=== PATIENT | female | born 1945 | race Caucasian/White ===

== ENCOUNTER 2016-12-17 06:07 | Day surgery (SDC) | payer OTHER ==
[~2016-12-17] VITALS: Ht 170.2 cm; Wt 61.0 kg
[~2016-12-17 06:07] MED LIST: AMPICILLIN PO; ANUSOL HC,ANUCO25 MG PR; CALTRATE PLUS1 EACH PO; CLOTRIM ANTIFUN15 GM TP; GLUCAGEN1 MG IM/SC; HUMALOG100 UNIT/1 SC; HYDROCODON-ACE1 EAC7 PO; HYDROCODON-ACE1 EAC9 PO; INSULIN SC; JANUVIA25 M1 PO; LANTUS 10100 UNITS/ SC; LEVEMIR100 UNIT/2 SC; MIRALAX17 GM PO; NORCO 5/3251 TABLET PO; NOVOLOG PE100 UNITS/ SC; ONDANSETRON ODT4 MG PO; TYLENOL REGULA325 MG PO
[2016-12-17 06:22] VITALS: BP 144/67
[2016-12-17 07:01] LABS: POINT-OF-CARE METER ID UU14174212
[2016-12-17 07:45] LABS: METH RESISTANT S AUREUS PCR NEGATIVE (NEGATIVE); PROBE CHECK PASS; SPECIMEN PROCESSING CONTROL PASS
[2016-12-17 08:50] LABS: POINT-OF-CARE METER ID UU13113675
[2016-12-17 09:24] VITALS: BP 160/74
[2016-12-17 10:06] VITALS: BP 178/76
[2016-12-17 11:07] VITALS: BP 146/77
== END 2016-12-17 11:10 ==
LOC: SDC 06:07
PROVIDERS: Orthopaedic Surgery
DX: T84.89XA Other specified complication of internal orthopedic prosthetic devices, implants and grafts, initial encounter (principal); Y83.1 Surgical operation with implant of artificial internal device as the cause of abnormal reaction of the patient, or of later complication, without mention of misadventure at the time of the procedure; E11.9 Type 2 diabetes mellitus without complications; Z87.891 Personal history of nicotine dependence
CPT/HCPCS: 82948; 87070; 87075; 87205; 87641; J0690; J3010

== ENCOUNTER 2017-03-09 19:10 | Inpatient (IN) | payer OTHER ==
[~2017-03-09] VITALS: Ht 170.2 cm; Wt 86.2 kg
[2017-03-09 19:41] LABS: HEMATOCRIT 29.2 % (36.0-46.0); MCH 29.4 PG (29.0-34.0); MCHC 32.9 G/DL (30.0-36.0); MCV 89.3 FL (83-99); MEAN PLAT.VOLUME 10.8 uM^3 (9.5-12.4); PLATELET COUNT 302 K/uL (156-360); RBC DIS.WIDTH-CV 12.5 % (11.8-14.6); RBC DIS.WIDTH-SD 40.6 % (39-53); RED BLOOD COUNT 3.27 M/uL (3.80-5.20); WHITE BLOOD COUNT 10.3 K/uL (4.1-10.2)
[2017-03-09 19:51] LABS: CHLORIDE 101 mEq/L (99-109); SODIUM 133 mEq/L (136-147)
[2017-03-09 19:53] LABS: GLUCOSE 348 mg/dL (70-99)
[2017-03-09 19:53] LABS: PROTHROMBIN TIME 10.3 (9.2-11.2); PTT 26.4 (25-32)
[2017-03-09 19:54] LABS: ANION GAP 9 MEQ/L (2-14)
[2017-03-09 19:55] LABS: TOTAL BILIRUBIN 0.3 mg/dL (0.0-1.0)
[2017-03-09 19:56] LABS: ALKALINE PHOSPHATASE 116 IU/L (3-129)
[2017-03-09 19:57] LABS: GFR ESTIMATE (CALCULATED) 36 mL/min/
[2017-03-09 19:58] LABS: UREA NITROGEN (BUN) 56 mg/dL (9-23)
[2017-03-09] MEDS ORDERED: LANTUS 10100 UNITS/ SC ×2 (22:05)
[2017-03-09 23:50] LABS: ADD MIUA? YES; BILIRUBIN NEGATIVE; BLOOD SMALL; COLOR YELLOW ((YELLOW)); GLUCOSE (STRIP) 150; KETONES NEGATIVE; LEUKOCYTES LARGE; NITRITE NEGATIVE; PROTEIN (STRIP) 100; SPECIFIC GRAVITY 1.011 (1.000-1.030); UROBILINOGEN 0.2 MG/DL (0.2-1.0)
[2017-03-09 23:52] LABS: UCUL ADDED? YES; WHITE BLOOD CELLS TNTC /HPF (0-5)
[2017-03-10 01:10] VITALS: BP 152/68
[2017-03-10 04:28] VITALS: BP 136/63
[2017-03-10 05:22] LABS: HEMATOCRIT 25.7 % (36.0-46.0); MCV 90.8 FL (83-99)
[2017-03-10 07:00] VITALS: BP 129/60
[2017-03-10 09:46] LABS: ANION GAP 6 MEQ/L (2-14); CHLORIDE 104 MEQ/L (99-109); GFR ESTIMATE (CALCULATED) 47 mL/min/; GLUCOSE 194 mg/dL (70-99); POTASSIUM 4.4 MEQ/L (3.7-5.4); SAMPLE HEMOLYSIS CHECK 0; SAMPLE ICTERIC CHECK 0; SAMPLE LIPEMIA CHECK 0; SODIUM 137 MEQ/L (136-147); UREA NITROGEN (BUN) 50 mg/dL (9-23)
[2017-03-10 10:28] LABS: POINT-OF-CARE METER ID UU14188577
[2017-03-10 11:44] VITALS: BP 112/58
[2017-03-10 12:30] LABS: TROP-I INTERPRETATION NEGATIVE; TROPONIN-I 0.02 ng/mL (0.0-0.30)
[2017-03-10 16:37] LABS: POINT-OF-CARE METER ID UU13113675
[2017-03-10 18:19] LABS: HEMATOCRIT 30.9 % (36.0-46.0); MCH 29.4 PG (29.0-34.0); MCHC 32.4 G/DL (30.0-36.0); MCV 90.9 FL (83-99); PLATELET COUNT 216 K/uL (156-360); RBC DIS.WIDTH-CV 13.8 % (11.8-14.6); RBC DIS.WIDTH-SD 45.8 % (39-53); WHITE BLOOD COUNT 10.4 K/uL (4.1-10.2)
[2017-03-10 19:30] VITALS: BP 149/68
[2017-03-10 23:36] VITALS: BP 133/60
[2017-03-11 03:31] VITALS: BP 148/63
[2017-03-11 05:20] LABS: EOSINOPHIL (%) 4.4 % (0-5); EOSINOPHIL COUNT 0.5 K/uL (0-0.3); HEMATOCRIT 30.2 % (36.0-46.0); IMMATURE GRANULOCYTE (%) 0.3 % (0.0-0.7); INSTRUMENT ABS NEUTROPHIL CT 9.8 K/uL; LYMPHOCYTE COUNT 0.4 K/uL (1.0-2.8); MCH 29.2 PG (29.0-34.0); MCHC 32.1 G/DL (30.0-36.0); MEAN PLAT.VOLUME 11.4 uM^3 (9.5-12.4); MONOCYTE (%) 7.3 % (3-12); MONOCYTE COUNT 0.8 K/uL (0-0.8); NEUTROPHIL (%) 84.3 % (45-76); NEUTROPHIL COUNT 9.8 K/uL (1.8-6.4); PLATELET COUNT 212 K/uL (156-360); RBC DIS.WIDTH-CV 14.4 % (11.8-14.6); RBC DIS.WIDTH-SD 47.7 % (39-53); RED BLOOD COUNT 3.32 M/uL (3.80-5.20); WHITE BLOOD COUNT 11.6 K/uL (4.1-10.2)
[2017-03-11 05:58] LABS: ANION GAP 8 MEQ/L (2-14); CHLORIDE 104 MEQ/L (99-109); GFR ESTIMATE (CALCULATED) 47 mL/min/; MAGNESIUM 2.3 mg/dl (1.3-2.7); POTASSIUM 4.7 MEQ/L (3.7-5.4); SAMPLE HEMOLYSIS CHECK 0; SAMPLE ICTERIC CHECK 0; SAMPLE LIPEMIA CHECK 0; SODIUM 136 MEQ/L (136-147); UREA NITROGEN (BUN) 41 mg/dL (9-23)
[2017-03-11 05:59] LABS: GLUCOSE 349 mg/dL (70-99)
[2017-03-11 07:51] VITALS: BP 133/63
[2017-03-11 10:41] LABS: POINT-OF-CARE METER ID UU14188577
[2017-03-11 14:46] LABS: POINT-OF-CARE METER ID UU14188577
[2017-03-11 16:18] VITALS: BP 144/61
[2017-03-11 19:39] LABS: POINT-OF-CARE METER ID UU14149397
[2017-03-11 20:52] LABS: ADD MIUA? YES; BILIRUBIN NEGATIVE; BLOOD SMALL; COLOR YELLOW ((YELLOW)); GLUCOSE (STRIP) >=500; KETONES NEGATIVE; LEUKOCYTES LARGE; NITRITE NEGATIVE; PROTEIN (STRIP) 30; SPECIFIC GRAVITY 1.016 (1.000-1.030); UROBILINOGEN 0.2 MG/DL (0.2-1.0)
[2017-03-11 21:51] LABS: BACTERIA RARE /HPF; CASTS PRESENT /LPF; CRYSTALS NONE SEEN; EPITHELIAL CELLS RARE /HPF; MUCUS NONE SEEN /LPF; RED BLOOD CELLS 0-5 /HPF (0-5); UCUL ADDED? YES; WHITE BLOOD CELLS TNTC /HPF (0-5)
[2017-03-11 22:13] LABS: POINT-OF-CARE METER ID UU14149397
[2017-03-11 23:29] VITALS: BP 111/53
[2017-03-12 05:29] LABS: EOSINOPHIL (%) 4.4 % (0-5); EOSINOPHIL COUNT 0.5 K/uL (0-0.3); IMMATURE GRANULOCYTE (%) 0.4 % (0.0-0.7); IMMATURE GRANULOCYTE COUNT 0.1 K/uL; INSTRUMENT ABS NEUTROPHIL CT 9.3 K/uL; LYMPHOCYTE COUNT 0.5 K/uL (1.0-2.8); MCH 29.5 PG (29.0-34.0); MCHC 32.7 G/DL (30.0-36.0); MCV 90.4 FL (83-99); MEAN PLAT.VOLUME 11.3 uM^3 (9.5-12.4); MONOCYTE (%) 9.9 % (3-12); MONOCYTE COUNT 1.2 K/uL (0-0.8); NEUTROPHIL (%) 80.4 % (45-76); NEUTROPHIL COUNT 9.3 K/uL (1.8-6.4); PLATELET COUNT 206 K/uL (156-360); RBC DIS.WIDTH-SD 45.3 % (39-53); RED BLOOD COUNT 3.32 M/uL (3.80-5.20); WHITE BLOOD COUNT 11.6 K/uL (4.1-10.2)
[2017-03-12 06:01] LABS: ALKALINE PHOSPHATASE 99 IU/L (3-129); ANION GAP 7 MEQ/L (2-14); CHLORIDE 101 MEQ/L (99-109); GFR ESTIMATE (CALCULATED) 43 mL/min/; POTASSIUM 4.7 MEQ/L (3.7-5.4); SAMPLE HEMOLYSIS CHECK 0; SAMPLE ICTERIC CHECK 0; SAMPLE LIPEMIA CHECK 0; SODIUM 132 MEQ/L (136-147); TOTAL BILIRUBIN 0.3 MG/DL (0.0-1.0); UREA NITROGEN (BUN) 36 mg/dL (9-23)
[2017-03-12 06:02] LABS: GLUCOSE 160 mg/dL (70-99)
[2017-03-12 08:08] VITALS: BP 155/66
[2017-03-12 12:15] LABS: POINT-OF-CARE METER ID UU14188577
[2017-03-12 15:50] VITALS: BP 138/68
[2017-03-12 23:40] VITALS: BP 147/65
[2017-03-13 03:51] VITALS: BP 120/58
[2017-03-13 05:24] LABS: EOSINOPHIL COUNT 0.8 K/uL (0-0.3); HEMATOCRIT 29.8 % (36.0-46.0); IMMATURE GRANULOCYTE (%) 0.5 % (0.0-0.7); IMMATURE GRANULOCYTE COUNT 0.1 K/uL; INSTRUMENT ABS NEUTROPHIL CT 8.7 K/uL; LYMPHOCYTE COUNT 0.6 K/uL (1.0-2.8); MCH 29.4 PG (29.0-34.0); MCHC 32.2 G/DL (30.0-36.0); MCV 91.1 FL (83-99); MEAN PLAT.VOLUME 11.2 uM^3 (9.5-12.4); MONOCYTE (%) 8.6 % (3-12); NEUTROPHIL (%) 78.5 % (45-76); NEUTROPHIL COUNT 8.7 K/uL (1.8-6.4); PLATELET COUNT 209 K/uL (156-360); RBC DIS.WIDTH-CV 13.8 % (11.8-14.6); RBC DIS.WIDTH-SD 46.5 % (39-53); RED BLOOD COUNT 3.27 M/uL (3.80-5.20); WHITE BLOOD COUNT 11.1 K/uL (4.1-10.2)
[2017-03-13 05:49] LABS: ANION GAP 7 MEQ/L (2-14); CHLORIDE 100 MEQ/L (99-109); GFR ESTIMATE (CALCULATED) 39 mL/min/; GLUCOSE 174 mg/dL (70-99); POTASSIUM 4.6 MEQ/L (3.7-5.4); SAMPLE HEMOLYSIS CHECK 0; SAMPLE ICTERIC CHECK 0; SAMPLE LIPEMIA CHECK 0; SODIUM 131 MEQ/L (136-147); TOTAL BILIRUBIN 0.3 MG/DL (0.0-1.0); UREA NITROGEN (BUN) 40 mg/dL (9-23)
[2017-03-13 05:50] LABS: ALKALINE PHOSPHATASE 145 IU/L (3-129)
[2017-03-13 07:51] VITALS: BP 129/60
[2017-03-13 11:45] LABS: POINT-OF-CARE METER ID UU14149397
[2017-03-13 12:31] LABS: POINT-OF-CARE METER ID UU14149397
[2017-03-13 17:58] LABS: POINT-OF-CARE METER ID UU14149397
[2017-03-13 21:42] LABS: POINT-OF-CARE METER ID UU14188577
[2017-03-13 23:16] VITALS: BP 173/77
[2017-03-14 05:23] LABS: EOSINOPHIL COUNT 0.7 K/uL (0-0.3); IMMATURE GRANULOCYTE (%) 0.3 % (0.0-0.7); INSTRUMENT ABS NEUTROPHIL CT 9.5 K/uL; LYMPHOCYTE COUNT 0.6 K/uL (1.0-2.8); MCH 29.5 PG (29.0-34.0); MCHC 32.4 G/DL (30.0-36.0); MCV 90.9 FL (83-99); MEAN PLAT.VOLUME 10.9 uM^3 (9.5-12.4); MONOCYTE (%) 8.6 % (3-12); NEUTROPHIL COUNT 9.5 K/uL (1.8-6.4); PLATELET COUNT 211 K/uL (156-360); RBC DIS.WIDTH-CV 13.2 % (11.8-14.6); RBC DIS.WIDTH-SD 44.1 % (39-53); RED BLOOD COUNT 3.19 M/uL (3.80-5.20); WHITE BLOOD COUNT 11.9 K/uL (4.1-10.2)
[2017-03-14 05:51] LABS: ALKALINE PHOSPHATASE 144 IU/L (3-129); ANION GAP 8 MEQ/L (2-14); CHLORIDE 101 MEQ/L (99-109); GFR ESTIMATE (CALCULATED) 43 mL/min/; GLUCOSE 217 mg/dL (70-99); POTASSIUM 4.7 MEQ/L (3.7-5.4); SAMPLE HEMOLYSIS CHECK 0; SAMPLE ICTERIC CHECK 0; SAMPLE LIPEMIA CHECK 0; SODIUM 132 MEQ/L (136-147); TOTAL BILIRUBIN 0.3 MG/DL (0.0-1.0); UREA NITROGEN (BUN) 39 mg/dL (9-23)
[2017-03-14 06:14] LABS: POINT-OF-CARE METER ID UU14149397
[2017-03-14 08:07] VITALS: BP 137/81
[2017-03-14 10:44] LABS: ADD MIUA? YES; BILIRUBIN NEGATIVE; BLOOD MODERATE; COLOR YELLOW ((YELLOW)); GLUCOSE (STRIP) NEGATIVE; KETONES NEGATIVE; LEUKOCYTES LARGE; NITRITE NEGATIVE; PROTEIN (STRIP) 100; UROBILINOGEN 0.2 MG/DL (0.2-1.0)
[2017-03-14 11:41] LABS: POINT-OF-CARE METER ID UU14188577
[2017-03-14 11:50] LABS: WHITE BLOOD CELLS TNTC /HPF (0-5)
[2017-03-14 12:06] LABS: UCUL ADDED? YES
[2017-03-14 16:03] VITALS: BP 156/71
[2017-03-14 23:24] VITALS: BP 149/67
[2017-03-15 05:13] LABS: EOSINOPHIL (%) 6.9 % (0-5); EOSINOPHIL COUNT 0.8 K/uL (0-0.3); HEMATOCRIT 28.5 % (36.0-46.0); IMMATURE GRANULOCYTE (%) 0.5 % (0.0-0.7); IMMATURE GRANULOCYTE COUNT 0.1 K/uL; INSTRUMENT ABS NEUTROPHIL CT 9.2 K/uL; LYMPHOCYTE COUNT 0.8 K/uL (1.0-2.8); MCH 29.5 PG (29.0-34.0); MCHC 32.6 G/DL (30.0-36.0); MCV 90.5 FL (83-99); MEAN PLAT.VOLUME 11.3 uM^3 (9.5-12.4); MONOCYTE (%) 9.7 % (3-12); MONOCYTE COUNT 1.2 K/uL (0-0.8); NEUTROPHIL (%) 76.3 % (45-76); NEUTROPHIL COUNT 9.2 K/uL (1.8-6.4); PLATELET COUNT 216 K/uL (156-360); RBC DIS.WIDTH-SD 42.8 % (39-53); RED BLOOD COUNT 3.15 M/uL (3.80-5.20); WHITE BLOOD COUNT 12.1 K/uL (4.1-10.2)
[2017-03-15 05:36] LABS: ANION GAP 9 MEQ/L (2-14); CHLORIDE 100 MEQ/L (99-109); GFR ESTIMATE (CALCULATED) 52 mL/min/; GLUCOSE 179 mg/dL (70-99); POTASSIUM 4.9 MEQ/L (3.7-5.4); SAMPLE HEMOLYSIS CHECK 0; SAMPLE ICTERIC CHECK 0; SAMPLE LIPEMIA CHECK 0; SODIUM 131 MEQ/L (136-147); UREA NITROGEN (BUN) 34 mg/dL (9-23)
[2017-03-15 07:29] VITALS: BP 127/60
[2017-03-15 09:49] LABS: INTERNAL CONTROL VALID? YES
[2017-03-15 16:00] VITALS: BP 177/71
[2017-03-15 21:23] LABS: POINT-OF-CARE METER ID UU14188577; POINT-OF-CARE USER ID 608261316
[2017-03-15 23:02] VITALS: BP 119/59
[2017-03-16 05:16] LABS: CHLORIDE 103 mEq/L (99-109); POTASSIUM 4.9 mEq/L (3.7-5.4); SODIUM 132 mEq/L (136-147)
[2017-03-16 05:17] LABS: GLUCOSE 166 mg/dL (70-99)
[2017-03-16 05:18] LABS: HEMATOCRIT 28.1 % (36.0-46.0); MCH 29.4 PG (29.0-34.0); MCHC 32.7 G/DL (30.0-36.0); MCV 89.8 FL (83-99); MEAN PLAT.VOLUME 10.5 uM^3 (9.5-12.4); PLATELET COUNT 267 K/uL (156-360); RBC DIS.WIDTH-CV 12.8 % (11.8-14.6); RBC DIS.WIDTH-SD 41.8 % (39-53); RED BLOOD COUNT 3.13 M/uL (3.80-5.20); WHITE BLOOD COUNT 9.1 K/uL (4.1-10.2)
[2017-03-16 05:19] LABS: ANION GAP 8 MEQ/L (2-14)
[2017-03-16 05:21] LABS: GFR ESTIMATE (CALCULATED) 58 mL/min/
[2017-03-16 05:22] LABS: UREA NITROGEN (BUN) 32 mg/dL (9-23)
[2017-03-16 07:34] VITALS: BP 136/64
[2017-03-16 16:11] VITALS: BP 143/67
[2017-03-16 17:33] LABS: POINT-OF-CARE METER ID UU14149397
[2017-03-17 00:44] VITALS: BP 145/66
[2017-03-17 04:57] LABS: EOSINOPHIL COUNT 1.1 K/uL (0-0.3); HEMATOCRIT 29.5 % (36.0-46.0); IMMATURE GRANULOCYTE (%) 0.5 % (0.0-0.7); IMMATURE GRANULOCYTE COUNT 0.1 K/uL; INSTRUMENT ABS NEUTROPHIL CT 8.2 K/uL; LYMPHOCYTE COUNT 0.7 K/uL (1.0-2.8); MCH 29.5 PG (29.0-34.0); MCHC 32.9 G/DL (30.0-36.0); MCV 89.7 FL (83-99); MEAN PLAT.VOLUME 10.2 uM^3 (9.5-12.4); MONOCYTE (%) 9.1 % (3-12); NEUTROPHIL (%) 73.9 % (45-76); NEUTROPHIL COUNT 8.2 K/uL (1.8-6.4); PLATELET COUNT 310 K/uL (156-360); RBC DIS.WIDTH-CV 12.9 % (11.8-14.6); RBC DIS.WIDTH-SD 42.3 % (39-53); RED BLOOD COUNT 3.29 M/uL (3.80-5.20); WHITE BLOOD COUNT 11.1 K/uL (4.1-10.2)
[2017-03-17 05:08] LABS: CHLORIDE 104 mEq/L (99-109); POTASSIUM 5.5 mEq/L (3.7-5.4); SODIUM 133 mEq/L (136-147)
[2017-03-17 05:10] LABS: GLUCOSE 192 mg/dL (70-99)
[2017-03-17 05:12] LABS: ANION GAP 5 MEQ/L (2-14)
[2017-03-17 05:14] LABS: GFR ESTIMATE (CALCULATED) 58 mL/min/
[2017-03-17 05:15] LABS: UREA NITROGEN (BUN) 28 mg/dL (9-23)
[2017-03-17 08:43] VITALS: BP 126/65
[2017-03-17 11:44] LABS: POINT-OF-CARE METER ID UU14188577
[2017-03-17] MEDS ORDERED: CEFTIN500 MG PO (13:12)
[2017-03-17] MEDS ORDERED: AZITHROMYCIN500 M1 PO (13:13)
[2017-03-17] MEDS ORDERED: TYLENOL REGULA325 MG PO (13:13)
[2017-03-17] MEDS ORDERED: DUONEB 2.5-0.5 M3 ML AEROSOL (13:13)
[2017-03-17] MEDS ORDERED: LOVENOX40 MG/0.4 SC (13:13)
[2017-03-17] MEDS ORDERED: BETHANECHOL CHL25 MG PO (13:13)
[2017-03-17] MEDS ORDERED: BISACODYL5 MG PO (13:15)
[2017-03-17] MEDS ORDERED: DOCUSATE SODIU100 MG PO (13:15)
[2017-03-17] MEDS ORDERED: LEVEMIR100 UNIT/2 SC (13:17)
[2017-03-17] MEDS ORDERED: NOVOLOG PE100 UNITS/ SC (13:17)
[2017-03-17] MEDS ORDERED: THERAGRAN1 TABLET PO (13:18)
[2017-03-17] MEDS ORDERED: LIDOCAINE700 MG TD (13:19)
[2017-03-17] MEDS ORDERED: HYDROCODON-ACE1 EAC9 PO (13:19)
== END 2017-03-17 15:17 | DRG 469 ==
LOC: EME → EDBD 19:10 → EDOF 22:32 → 3EAST 22:32
PROVIDERS: Emergency Medicine; Hospitalist; Internal Medicine; Orthopaedic Surgery; Physician Assistant Medical
PROC: 0SRS0JZ Replacement of Left Hip Joint, Femoral Surface with Synthetic Substitute, Open Approach (ICD-10-PCS; principal; 2017-03-10)
PROC: 30233N1 Transfusion of Nonautologous Red Blood Cells into Peripheral Vein, Percutaneous Approach (ICD-10-PCS; 2017-03-10)
DX: S72.002A Fracture of unspecified part of neck of left femur, initial encounter for closed fracture (principal); N17.9 Acute kidney failure, unspecified; J18.9 Pneumonia, unspecified organism; E11.69 Type 2 diabetes mellitus with other specified complication; E86.0 Dehydration; E11.42 Type 2 diabetes mellitus with diabetic polyneuropathy; E11.65 Type 2 diabetes mellitus with hyperglycemia; Y92.018 Other place in single-family (private) house as the place of occurrence of the external cause; W18.30XA Fall on same level, unspecified, initial encounter; Z87.81 Personal history of (healed) traumatic fracture; R33.9 Retention of urine, unspecified; N39.0 Urinary tract infection, site not specified; E11.319 Type 2 diabetes mellitus with unspecified diabetic retinopathy without macular edema; Z79.4 Long term (current) use of insulin; J45.909 Unspecified asthma, uncomplicated; E87.6 Hypokalemia; D62 Acute posthemorrhagic anemia; Z87.891 Personal history of nicotine dependence; R94.31 Abnormal electrocardiogram [ECG] [EKG]; I44.0 Atrioventricular block, first degree; E87.1 Hypo-osmolality and hyponatremia; N31.2 Flaccid neuropathic bladder, not elsewhere classified; T83.518A Infection and inflammatory reaction due to other urinary catheter, initial encounter; E11.43 Type 2 diabetes mellitus with diabetic autonomic (poly)neuropathy; R01.1 Cardiac murmur, unspecified; M25.562 Pain in left knee; M25.462 Effusion, left knee; M17.12 Unilateral primary osteoarthritis, left knee; M21.372 Foot drop, left foot; K59.00 Constipation, unspecified
CPT/HCPCS: 71010; 73501; 73502; 73560; 80048; 80053; 81003; 82948; 83735; 83880; 84132 91; 84484; 85014; 85018; 85025; 85027; 85610; 85730; 86900; 86901; 86920; 87077; 87086; 87106; 87186; 87449; 93005; 94010; 94640; 94640 76; 94799; 97530 GP; 99202; 99281; 99285; J0131; J0456; J0690; J0696; J1644; J1650; J1815; J1940; J2250; J2270; J3010; J7030; J7042; J7050; P9016

== ENCOUNTER 2017-05-25 14:55 | Inpatient (IN) | payer OTHER ==
[~2017-05-25] VITALS: Ht 167.6 cm; Wt 97.6 kg
[~2017-05-25 14:55] MED LIST changes: +AZITHROMYCIN500 M1 PO; +BETHANECHOL CHL25 MG PO; +BISACODYL5 MG PO; +CEFTIN500 MG PO; +DOCUSATE SODIU100 MG PO; +DUONEB 2.5-0.5 M3 ML AEROSOL; +LIDOCAINE700 MG TD; +LOVENOX40 MG/0.4 SC; +THERAGRAN1 TABLET PO
[2017-05-25 15:37] LABS: CREATININE 1.2 mg/dL (0.6-1.3); POTASSIUM 5.3 mEq/L (3.7-5.4)
[2017-05-25 15:47] LABS: BASOPHIL COUNT 0.1 K/uL (0-0.1); EOSINOPHIL (%) 4.9 % (0-5); EOSINOPHIL COUNT 0.9 K/uL (0-0.3); HEMATOCRIT 35.3 % (36.0-46.0); IMMATURE GRANULOCYTE (%) 3.3 % (0.0-0.7); IMMATURE GRANULOCYTE COUNT 0.6 K/uL; INSTRUMENT ABS NEUTROPHIL CT 11.5 K/uL; LYMPHOCYTE COUNT 3.7 K/uL (1.0-2.8); MCH 30.9 PG (29.0-34.0); MCHC 30.3 G/DL (30.0-36.0); MEAN PLAT.VOLUME 11.8 uM^3 (9.5-12.4); MONOCYTE (%) 5.7 % (3-12); NEUTROPHIL (%) 64.7 % (45-76); NEUTROPHIL COUNT 11.5 K/uL (1.8-6.4); NRBC (%) 0.2 /100 WBC (0-0); PLATELET COUNT 275 K/uL (156-360); RBC DIS.WIDTH-CV 14.6 % (11.8-14.6); RBC DIS.WIDTH-SD 55.2 % (39-53); RED BLOOD COUNT 3.46 M/uL (3.80-5.20); WHITE BLOOD COUNT 17.7 K/uL (4.1-10.2)
[2017-05-25 15:55] LABS: INTER. NORMALIZED RATIO 1.1; PROTHROMBIN TIME 10.9 (9.2-11.2); PTT 24.5 (25-32)
[2017-05-25 15:57] LABS: CHLORIDE 103 mEq/L (99-109); POTASSIUM 5.3 mEq/L (3.7-5.4); SODIUM 135 mEq/L (136-147)
[2017-05-25 15:58] LABS: AMYLASE 39 IU/L (1-118); MAGNESIUM 2.7 mg/dL (1.3-2.7)
[2017-05-25 15:59] LABS: GLUCOSE 366 mg/dL (70-99)
[2017-05-25 16:01] LABS: ANION GAP 16 MEQ/L (2-14)
[2017-05-25 16:03] LABS: GFR ESTIMATE (CALCULATED) 36 mL/min/; SERUM ETHYL ALCOHOL < 10 mg/dL
[2017-05-25 16:04] LABS: UREA NITROGEN (BUN) 45 mg/dL (9-23)
[2017-05-25 16:06] LABS: LIPASE 33 U/L (1.0-51.0)
[2017-05-25 16:06] LABS: BASE EXCESS -10.1 mEq/L (-3 to +3); BICARBONATE 18.2 mEq/L (22-26); COMMENTS - BLOOD GASES C+; DEVICE 980; FI02 100 %; METHEMOGLOBIN 0.9 % (0-1.5); MODE AC; PCO2 51 mm Hg (35-45); PO2 221 mm Hg (80-100); SITE LR
[2017-05-25 16:07] LABS: TROP-I INTERPRETATION NEGATIVE; TROPONIN-I 0.02 ng/mL (0.0-0.30)
[2017-05-25 16:07] LABS: MECHANICAL RATE 14 resp/min; PEEP 12 CM/H20; TIDAL VOLUME 550 ML; TOTAL RESP RATE 14 resp/min
[2017-05-25 16:08] LABS: pH 7.16 (7.35-7.45)
[2017-05-25 17:25] LABS: BASE EXCESS -4.5 mEq/L (-3 to +3); BICARBONATE 21.1 mEq/L (22-26); CARBOXY HGB 1.8 % (0-5); METHEMOGLOBIN 1.1 % (0-1.5)
[2017-05-25 17:26] LABS: COMMENTS - BLOOD GASES C+; DEVICE 980; FI02 100 %; MECHANICAL RATE 16 resp/min; MODE AC; PCO2 40 mm Hg (35-45); PEEP 12 CM/H20; PO2 291 mm Hg (80-100); SITE RR; TOTAL RESP RATE 16 resp/min; pH 7.33 (7.35-7.45)
[2017-05-25 17:27] LABS: ADD MIUA? YES; BILIRUBIN NEGATIVE; BLOOD MODERATE; COLOR YELLOW ((YELLOW)); GLUCOSE (STRIP) 150; KETONES NEGATIVE; LEUKOCYTES LARGE; NITRITE NEGATIVE; PROTEIN (STRIP) 100; SPECIFIC GRAVITY 1.015 (1.000-1.030); UROBILINOGEN 0.2 MG/DL (0.2-1.0)
[2017-05-25 17:28] LABS: AMPHETAMINE NEGATIVE (500 ng/mL); BARBITURATES NEGATIVE (200 ng/mL); BENZODIAZEPINES NEGATIVE (150 ng/mL); COCAINE NEGATIVE (150 ng/mL); INTERNAL CONTROLS VALID? YES; METHADONE NEGATIVE (200 ng/mL); METHAMPHETAMINE NEGATIVE (500 ng/mL); OPIATES (MORPHINE) NEGATIVE (100 ng/mL); OXYCODONE NEGATIVE (100 ng/mL); PHENCYCLIDINE NEGATIVE (25 ng/mL); PROPOXYPHENE NEGATIVE (300 ng/mL); THC CANNABINOIDS NEGATIVE (50 ng/mL); TRICYCLIC ANTIDEPRESSANTS NEGATIVE (300 ng/mL)
[2017-05-25 17:39] LABS: RED BLOOD CELLS 20-30 /HPF (0-5); WHITE BLOOD CELLS TNTC /HPF (0-5)
[2017-05-25 17:40] LABS: BACTERIA 1+ /HPF; CASTS NONE SEEN /LPF; CRYSTALS NONE SEEN; EPITHELIAL CELLS RARE /HPF; MUCUS NONE SEEN /LPF; UCUL ADDED? YES
[2017-05-25] MEDS ORDERED: THEREMS-M1 EACH PO (17:49)
[2017-05-25] MEDS ORDERED: BENADRYL ITCH28.3 GM TP (17:51)
[2017-05-25] MEDS ORDERED: DULCOLAX10 MG PR (17:52)
[2017-05-25] MEDS ORDERED: MILK OF MAGN PO (17:52)
[2017-05-25] MEDS ORDERED: LASIX20 MG PO (17:53)
[2017-05-25] MEDS ORDERED: LEVEMIR FL100 UNIT/1 SC (17:54)
[2017-05-25] MEDS ORDERED: PROAIR HFA8.5 GM IH (17:54)
[2017-05-25] MEDS ORDERED: SANTYL30 GM TP (17:55)
[2017-05-25] MEDS ORDERED: BACTROBAN OINTM22 GM TP (17:56)
[2017-05-25] MEDS ORDERED: KEFLEX500 MG PO (17:57)
[2017-05-25] MEDS ORDERED: CIPROFLOXACIN500 M1 PO (17:58)
[2017-05-25 18:15] VITALS: BP 176/95
[2017-05-25 19:00] VITALS: BP 187/86
[2017-05-25 19:40] LABS: METH RESISTANT S AUREUS PCR POSITIVE (NEGATIVE)
[2017-05-25 19:57] LABS: PROBE CHECK PASS
[2017-05-25 20:00] VITALS: BP 186/90
[2017-05-25 20:31] LABS: DIRECT BILIRUBIN 0.2 mg/dL (0.0-0.3); TOTAL BILIRUBIN 0.5 MG/DL (0.0-1.0)
[2017-05-25 20:37] LABS: ALKALINE PHOSPHATASE 471 IU/L (3-129)
[2017-05-25 21:00] VITALS: BP 193/91
[2017-05-25 22:00] VITALS: BP 183/80
[2017-05-25 22:02] LABS: POINT-OF-CARE METER ID UU13113748
[2017-05-25 23:00] VITALS: BP 182/87
[2017-05-26] VITALS (24 sets, daily range): BP systolic 55–195; BP diastolic 37–96
[2017-05-26 01:02] LABS: POINT-OF-CARE METER ID UU13113748
[2017-05-26 06:19] LABS: ANION GAP 11 MEQ/L (2-14); CHLORIDE 104 MEQ/L (99-109); GFR ESTIMATE (CALCULATED) 43 mL/min/; GLUCOSE 249 mg/dL (70-99); POTASSIUM 5.2 MEQ/L (3.7-5.4); SAMPLE HEMOLYSIS CHECK 0; SAMPLE ICTERIC CHECK 0; SAMPLE LIPEMIA CHECK 0; SODIUM 139 MEQ/L (136-147); UREA NITROGEN (BUN) 44 mg/dL (9-23)
[2017-05-26 06:24] LABS: INTER. NORMALIZED RATIO 1.1; PROTHROMBIN TIME 11.4 (9.2-11.2)
[2017-05-26 06:47] LABS: POINT-OF-CARE METER ID UU14174217
[2017-05-26 11:38] LABS: POINT-OF-CARE METER ID UU14162636
[2017-05-26 15:18] LABS: EOSINOPHIL (%) 0.1 % (0-5); HEMATOCRIT 30.3 % (36.0-46.0); IMMATURE GRANULOCYTE (%) 0.5 % (0.0-0.7); IMMATURE GRANULOCYTE COUNT 0.1 K/uL; INSTRUMENT ABS NEUTROPHIL CT 16.3 K/uL; LYMPHOCYTE COUNT 0.4 K/uL (1.0-2.8); MCH 31.7 PG (29.0-34.0); MEAN PLAT.VOLUME 11.2 uM^3 (9.5-12.4); MONOCYTE (%) 2.9 % (3-12); MONOCYTE COUNT 0.5 K/uL (0-0.8); NEUTROPHIL (%) 93.9 % (45-76); NEUTROPHIL COUNT 16.3 K/uL (1.8-6.4); PLATELET COUNT 217 K/uL (156-360); RBC DIS.WIDTH-CV 14.7 % (11.8-14.6); RBC DIS.WIDTH-SD 50.4 % (39-53); RED BLOOD COUNT 3.25 M/uL (3.80-5.20); WHITE BLOOD COUNT 17.3 K/uL (4.1-10.2)
[2017-05-26 15:19] LABS: MCV 93.2 FL (83-99)
[2017-05-26 16:14] LABS: ALKALINE PHOSPHATASE 354 IU/L (3-129); TOTAL BILIRUBIN 0.4 MG/DL (0.0-1.0)
[2017-05-26 17:02] LABS: BASE EXCESS 0.6 mEq/L (-3 to +3); BICARBONATE 22.6 mEq/L (22-26); CARBOXY HGB 1.5 % (0-5); COMMENTS - BLOOD GASES A+C+; DEVICE VENT; FI02 40 %; MECHANICAL RATE 16 resp/min; METHEMOGLOBIN 1.6 % (0-1.5); MODE A/C; PCO2 27 mm Hg (35-45); PO2 105 mm Hg (80-100); SITE RR; TOTAL RESP RATE 18 resp/min; pH 7.53 (7.35-7.45)
[2017-05-26 17:03] LABS: PEEP 5 CM/H20; TIDAL VOLUME 550 ML
[2017-05-26 17:09] LABS: ADD MIUA? YES; BILIRUBIN NEGATIVE; BLOOD SMALL; COLOR YELLOW ((YELLOW)); GLUCOSE (STRIP) 150; KETONES 20; LEUKOCYTES LARGE; NITRITE NEGATIVE; PROTEIN (STRIP) 30; SPECIFIC GRAVITY 1.021 (1.000-1.030); UROBILINOGEN 0.2 MG/DL (0.2-1.0)
[2017-05-26 18:16] LABS: WHITE BLOOD CELLS TNTC /HPF (0-5)
[2017-05-26 18:17] LABS: BACTERIA 3+ /HPF; EPITHELIAL CELLS RARE /HPF; MUCUS RARE /LPF; OTHER YEAST W/HYPHAE
[2017-05-26 18:38] LABS: BASE EXCESS -0.1 mEq/L (-3 to +3); BICARBONATE 22.3 mEq/L (22-26); CARBOXY HGB 1.4 % (0-5); COMMENTS - BLOOD GASES A+C+; DEVICE VENT; FI02 40 %; MECHANICAL RATE 14 resp/min; METHEMOGLOBIN 1.4 % (0-1.5); MODE AC; PCO2 28 mm Hg (35-45); PO2 99 mm Hg (80-100); SITE RR; TOTAL RESP RATE 18 resp/min; pH 7.51 (7.35-7.45)
[2017-05-26 18:39] LABS: PEEP 5 CM/H20; TIDAL VOLUME 450 ML
== END 2017-05-27 00:17 | DRG 91 ==
LOC: EME 14:55 → 4WEST 17:15 → EDOF 17:15 → 4WEST 17:56
PROVIDERS: Emergency Medicine; Internal Medicine Critical Care Medicine; Internal Medicine Nephrology; Internal Medicine Pulmonary Disease
PROC: 5A1945Z Respiratory Ventilation, 24-96 Consecutive Hours (ICD-10-PCS; principal; 2017-05-25)
PROC: 05HQ33Z Insertion of Infusion Device into Left External Jugular Vein, Percutaneous Approach (ICD-10-PCS; 2017-05-25)
DX: G93.1 Anoxic brain damage, not elsewhere classified (principal); I46.9 Cardiac arrest, cause unspecified; I47.2 Ventricular tachycardia; I48.91 Unspecified atrial fibrillation; I49.01 Ventricular fibrillation; A41.9 Sepsis, unspecified organism; R65.21 Severe sepsis with septic shock; J96.01 Acute respiratory failure with hypoxia; N17.9 Acute kidney failure, unspecified; N39.0 Urinary tract infection, site not specified; E87.2 Acidosis; J90 Pleural effusion, not elsewhere classified; J98.11 Atelectasis; E11.65 Type 2 diabetes mellitus with hyperglycemia; D64.9 Anemia, unspecified; I10 Essential (primary) hypertension; J45.909 Unspecified asthma, uncomplicated; Z79.4 Long term (current) use of insulin; Z87.891 Personal history of nicotine dependence; Z96.649 Presence of unspecified artificial hip joint
CPT/HCPCS: 36600; 70450; 71010; 71275; 80047; 80048; 80076; 81003; 82150; 82803; 82948; 83605; 83690; 83735; 84484; 85025; 85610; 85730; 86900; 86901; 87040; 87070; 87077; 87086; 87186; 87205; 87641; 93005; 94002; 94640; 95819; 99281; 99285; G0480; J0282; J0360; J0461; J0692; J0696; J1644; J1815; J2060; J2270; J2543; J3370; J7030; J7050; S0028